=== PATIENT | male | born 1940 | race Caucasian/White ===

== ENCOUNTER 2021-06-02 01:14 | Emergency (ER) | payer MEDICARE ==
[~2021-06-02] VITALS: Ht 177.8 cm; Wt 105.3 kg
[2021-06-02] MEDS ORDERED: SILVER NITRATE STICK TP ONE (02:00)
--- NOTE | 2021-06-02 02:12 | PHYS DOC ---
Past Medical History Past Surgical History: Appendectomy, Other Additional Past Surgical Histo: L leg Smoking Status: Never Smoker Alcohol Use: None General Adult EDM: Chief Complaint: EARACHE/EAR PAIN HPI: HPI: Patient is a 80 year old male here for ear skin bleeding starting today. Patient states that he has had dry skin on the pinna of his right ear for years and sometimes they would peel off and bleed. Today he had another episode of peeling and bleeding from the right pinna. He tried to stop the bleeding by pressing a towel to the area but bleeding did not stop. He has hx of skin cancer. Patient states he does not know if he has medical problems because he has not seen a physician in a while. Review of Systems: Review of Systems: Constitutional: Denies fever or chills Eyes: Denies redness or eye pain HENT: Denies nasal congestion or sore throat Respiratory: Denies cough or shortness of breath Cardiovascular: Denies chest pain or palpitations GI: Denies abdominal pain, nausea, or vomiting : Denies dysuria or hematuria Musculoskeletal: Denies back pain or joint pain Integument: Denies rash. Reports small laceration that is actively bleeding. Neurologic: Denies headache, focal weakness or sensory changes Complete systems were reviewed and found to be within normal limits, except as documented in this note. Heart Score: C/O Chest Pain: N/A Current Medications: Current Medications Medications (Trade) Dose Ordered Sig/Gerardo Start Time Stop Time Status Last Admin Dose Admin Silver Nitrate/ Potassium Nitrate 1 each 1X ONCE 06/02/21 02:00 06/02/21 02:01 DC Allergies: Allergies: Allergies Coded Allergies Type Severity Reaction Last Updated Verified No Known Drug Allergies 06/02/21 No Physical Exam: PE: Constitutional: Well developed, well nourished, no acute distress, non-toxic appearance HENT: Normocephalic, atraumatic Eyes: PERRL, EOMI, conjunctiva normal, no discharge Neck: Normal range of motion, no tenderness, supple Lungs & Thorax: No respiratory distress, equal chest rise and fall Abdomen: Soft, no tenderness Skin: Warm, dry, no erythema, no rash. There is a very small peeled area of skin on the right pinna that is actively bleeding. Back: No tenderness, no CVA tenderness Extremities: No tenderness, ROM intact, no edema Neurologic: Alert and oriented X 3, normal motor function, normal sensory function, no focal deficits noted Psychologic: Affect normal, judgment normal Current Patient Data: Vital Signs: Vital Signs Date Time Temp Pulse Resp B/P (MAP) Pulse Ox O2 Delivery O2 Flow Rate FiO2 06/02/21 01:29 97.3 84 18 144/84 (104) 95 Room Air 97.3 Course & Med Decision Making: Course & Med Decision Making 80 year old male here for bleeding from the skin of the right pinna. Patient has been applying a towel to absorb the blood but states this has not helped with the bleeding. Patient appears well otherwise and has no bleeding from other areas. Repeated application of pressure to area did not stop the bleeding. Cauterized area with silver nitrate stick which stopped the active bleeding. Patient stable for discharge with outpatient follow-up with PCP. Discussed findings and plan with patient, who acknowledges understanding and agreement. Dragon Disclaimer: Dragon Disclaimer: This electronic medical record was generated, in whole or in part, using a voice recognition dictation system. Additional Procedures Progress Chemical cauterization of right ear pinpoint hemorrhage. Verbal consent obtained. Time out performed. Hand hygiene utilized. Wound cleaned with Hydrogen Peroxide Copious irrigation performed. Patient tolerated procedure well and without difficulty. Departure Departure Impression: Primary Impression: Hemorrhage from the ear Qualified Codes: H92.21 - Otorrhagia, right ear Disposition: HOME / SELF CARE / HOMELESS Condition: IMPROVED Patient Instructions: Abrasion, [id number] Additional Instructions: If bleeding continues hold direct pressure for 15 minutes. If bleeding continues thereafter hold for an additional 15 minutes prior to presenting to the emergency department for further evaluation. Do not soak your wound. You may shower. Clean wound daily with soap and water. Change dressing 2 times daily. Use over the counter antibiotic ointment with each dressing change. KARINE WELLS DO Jun 02, 2021 02:12
[2021-06-02 02:27] VITALS: BP 173/93
== END 2021-06-02 02:30 | disposition home or self-care (01) ==
LOC: ER 01:14
DX: H92.21 Otorrhagia, right ear (principal); L85.3 Xerosis cutis
CPT/HCPCS: 69209; 99282